=== PATIENT | male | born 1995 | race Caucasian/White ===

== ENCOUNTER 2018-05-27 09:17 | Outpatient (CLI) | payer OTHER ==
--- NOTE | 2018-05-27 10:30 | RAD ---
TWO VIEW THORACOLUMBAR SPINE SCOLIOSIS SERIES: Indication: Scoliosis (Z13.828) FINDINGS: Minimal right convexity curvature centered at the mid to lower thoracic spine, less than 5 degrees. W ithin the lumbar spine, apex at L3, there is levoscoliosis, approximately 17 degrees. IMPRESSION: 1. Levoscoliosis of the lumbar spine, apex at the L2-3 region. 2. There is no vertebral anomaly evident. POS: [facility]
== END 2018-05-27 09:18 | disposition home or self-care (01) ==
LOC: SCSRAD 09:17
PROVIDERS: ATTEND Family Medicine
DX: Z13.828 Encounter for screening for other musculoskeletal disorder (principal); M41.9 Scoliosis, unspecified
CPT/HCPCS: 72081